=== PATIENT | male | born 1950 | race Caucasian/White ===

== ENCOUNTER 2018-01-01 20:19 | Emergency (ER) | payer MEDICARE, OTHER ==
[2018-01-01 20:33] VITALS: BP 136/76
--- NOTE | 2018-01-01 21:07 | ED Physician Documentation ---
General Adult - HISTORIAN Historian: patient - HPI Stated Complaint: Painful urinary retention Chief Complaint: General Adult Onset: hours Timing: still present Further Comments: yes (Pt is a 67 yo male with urinary retention. Pt is on several meds for BPH and is followed by a urologist. Pt had been managing to void, but today he has retention and can't void at all. Pt has been using sudafed for a recent cold and wonders if this contributed to his greater difficulty.) - ROS CONST: no problems EYES/ENT: none CVS/RESP: none GI/: other (difficulty voiding/retention) MS/SKIN/LYMPH: none - PAST HX Past History: other (HLD, difficulty voiding) Allergies/Adverse Reactions: Allergies Allergy/AdvReac Type Severity Reaction Status Date / Time Penicillins Allergy Verified 01/01/18 20:33 - SOCIAL HX Smoking History: non-smoker - FAMILY HX Family History: No - VITAL SIGNS Vital Signs: Vital Signs Temp Pulse Resp BP Pulse Ox 98.3 F 77 18 136/76 98 01/01/18 20:25 01/01/18 20:25 01/01/18 20:25 01/01/18 20:25 01/01/18 20:25 - REVIEWED ASSESSMENTS Nursing Assessment Reviewed: Yes Vitals Reviewed: Yes Progress - Progress Progress: in & out amador cath voided 800 cc U/a - neg pt will f/u with his urologist in am ED Results Lab/Radiology - Orders Orders: ED Orders Category Date Time Status Amador [Urinary catheterization] 1T Care 01/01/18 20:34 Active UA [URINALYSIS] Routine Lab 01/01/18 Ordered General Adult Physical Exam - PHYSICAL EXAM GENERAL APPEARANCE: mild distress EENT: pharynx normal NECK: normal inspection, supple RESPIRATORY: no resp distress, chest non-tender, breath sounds normal CVS: reg rate & rhythm, heart sounds normal ABDOMEN: soft, normal bowel sounds, tenderness (suprapubic) BACK: normal inspection, no CVA tenderness SKIN: warm/dry, normal color EXTREMITIES: non-tender, normal range of motion, no evidence of injury, no edema NEURO: oriented X3, motor nml, sensation nml Discharge Clincal Impression: Urinary retention Referrals: Obdulia De La Paz MD [Primary Care Provider] - Condition: Good Disposition: 01 HOME, SELF-CARE Decision to Admit: NO Decision Time: 21:07
[2018-01-02 07:01] LABS: APPEARANCE,URINE CLEAR (CLEAR); COLOR,URINE YELLOW (YELLOW); OCCULT BLOOD,URINE TRACE-INTACT (NEGATIVE); UROBILINOGEN URINE 0.2 Eu (0.2-1.0)
== END 2018-01-01 21:15 | disposition home or self-care (01) ==
LOC: ED 20:19
DX: R33.9 Retention of urine, unspecified (principal)
CPT/HCPCS: 51701; 81002; 99283

== ENCOUNTER 2018-01-02 01:54 | Emergency (ER) | payer MEDICARE, OTHER ==
[2018-01-02 02:48] VITALS: BP 138/80
--- NOTE | 2018-01-02 02:48 | ED Physician Documentation ---
General Adult - HISTORIAN Historian: patient - HPI Stated Complaint: urinary retention Chief Complaint: General Adult Onset: hours Timing: still present Severity: moderate Further Comments: yes (Pt is a 67 yo male with BPH on several BPH meds, who was here earlier this evening and had an in & out amador cath. Pt returned home and again became unable to void and became uncomfortable. Pt returns to ER with urniary retention.) - ROS CONST: no problems EYES/ENT: none CVS/RESP: none GI/: problems urinating (retention) MS/SKIN/LYMPH: none - PAST HX Past History: other (BPH, HLD) Allergies/Adverse Reactions: Allergies Allergy/AdvReac Type Severity Reaction Status Date / Time Penicillins Allergy Verified 01/02/18 02:48 - SOCIAL HX Smoking History: non-smoker - FAMILY HX Family History: No - VITAL SIGNS Vital Signs: Vital Signs Temp Pulse Resp BP Pulse Ox 136/76 01/01/18 20:25 - REVIEWED ASSESSMENTS Nursing Assessment Reviewed: Yes Vitals Reviewed: Yes Progress - Progress Progress: Amador cath placed, with leg bag. Pt will f/u with his urologist in am. Pt had neg u/a earlier this evening. ED Results Lab/Radiology - Orders Orders: ED Orders Category Date Time Status Amador [Urinary catheterization] 1T Care 01/02/18 02:35 Active General Adult Physical Exam - PHYSICAL EXAM GENERAL APPEARANCE: mild distress NECK: normal inspection, supple RESPIRATORY: no resp distress, chest non-tender, breath sounds normal CVS: reg rate & rhythm, heart sounds normal ABDOMEN: soft, no organomegaly, normal bowel sounds, other (suprapubic tenderness c/w urinary retention) BACK: normal inspection, no CVA tenderness SKIN: warm/dry, normal color EXTREMITIES: non-tender, normal range of motion, no evidence of injury NEURO: oriented X3, motor nml, sensation nml Discharge Clincal Impression: Urinary retention Referrals: Primary Doctor,No [Primary Care Provider] - Condition: Good Disposition: HOME, SELF-CARE Decision to Admit: NO Decision Time: 02:55
== END 2018-01-02 02:53 | disposition home or self-care (01) ==
LOC: ED 01:54
DX: R33.9 Retention of urine, unspecified (principal); N40.0 Benign prostatic hyperplasia without lower urinary tract symptoms; E78.5 Hyperlipidemia, unspecified
CPT/HCPCS: 51702; 99283

== ENCOUNTER 2018-01-03 09:59 | Outpatient (CLI) | payer MEDICARE, OTHER ==
[2018-01-02 02:48] VITALS: BP 138/80
[2018-01-03 10:18] LABS: EOSINOPHILS % 4.2 % (0.0-6.8); MEAN CORPUSCULAR HEMOGLOBIN 30.7 pg (28.0-34.0); MEAN CORPUSCULAR VOLUME 91.6 fl (80.0-100.0); MONOCYTES % 6.7 % (0.0-11.0); NEUTROPHILS # 4.7 # k/uL (1.4-7.7)
[2018-01-03 10:47] LABS: eGFR (African) > 60; eGFR (Non-African) > 60
== END 2018-01-03 10:00 ==
LOC: LAB 09:59
PROVIDERS: ATTEND Family Medicine
DX: R33.9 Retention of urine, unspecified (principal)
CPT/HCPCS: 36415; 80053; 85025; G0103; 84153

== ENCOUNTER 2018-04-25 07:10 | Emergency (ER) | payer MEDICARE, OTHER ==
--- NOTE | 2018-04-25 07:21 | ED Physician Documentation ---
Low Back Pain - HISTORIAN Historian: patient - HPI Stated Complaint: fall and low back pain Chief Complaint: Fall History: other (after fall ) Onset: days ago (5) Duration: continues in ED Recent Injury: Yes (He fell out of the truck on Saturday ) Context: fall Where: home Other Injuries: back Severity: moderate Quality: other (He said the low back pain (middle) is constant and gnawing pain and when he moves or laughs he has a sharp pain that "grabs" and this am "brought me to my knees" He has been taking ibuprofen /tylenol with mild relief. Denies any loss of bowel or bladder ) Associated Symptoms: denies: constipation, incontinence, nausea, vomiting, numbness Worsened By:: other (laughing ) Relieved By: remaining still - ROS CONST: no problems - PAST HX Past History: other (hyperlipidemia and BPH) Surgeries/Procedures: other Immunizations: UTD Allergies/Adverse Reactions: Allergies Allergy/AdvReac Type Severity Reaction Status Date / Time Penicillins Allergy Verified 04/25/18 07:28 - SOCIAL HX Smoking History: non-smoker Alcohol Use: none Drug Use: none - FAMILY HX Family History: none - VITAL SIGNS Vital Signs: Vital Signs Temp Pulse Resp BP Pulse Ox 98.0 F 66 18 116/80 98 04/25/18 07:21 04/25/18 07:21 04/25/18 07:21 04/25/18 07:21 04/25/18 07:21 - REVIEWED ASSESSMENTS Nursing Assessment Reviewed: Yes Vitals Reviewed: Yes Progress - Progress Progress: 0900: states pain is "slightly better" DG 0935: Discussed findings with pt and spouse and need for transfer ED Results Lab/Radiology - Orders Orders: ED Orders Category Date Time Status CT L-SPINE W/O CONTRAST Stat Exams 04/25/18 Ordered LUMBAR SPINE WITH OBLIQUES [L SPINE 4 VIEWS] [RAD] Stat Exams 04/25/18 Ordered Orphenadrine Citrate [Norflex] Med 04/25/18 07:46 Discontinued 60 mg IM NOW ONE methylPREDNISolone ACETATE [Depo-Medrol] Med 04/25/18 07:46 Discontinued 80 mg IM NOW ONE oxyCODONE HCL/ACETAMINOPHEN [Percocet 5-325 mg Tablet] Med 04/25/18 07:47 Discontinued 1 each PO NOW ONE Low Back Pain/Injury - Physical Exam General Appearance: alert, mild distress EENT: eye inspection normal Neck: non-tender, painless ROM Resp/CVS: chest non-tender, breath sounds nml, heart sounds nml, no resp. distress, lungs clear, reg. rate & rhythm Abdomen: non-tender Back: non-tender, other (with movement to right or left he states the "gripping pain" starts. He also states that the laughing does that same feeling ) Neuro/Psych: oriented x3, motor nml, sensation nml, reflexes nml, mood/affect nml Skin: warm/dry, normal color Extremities: non-tender, normal range of motion, no edema Discharge Clincal Impression: Burst fracture of lumbar vertebra Qualifiers: Encounter type: initial encounter Fracture type: closed Qualified Code(s): S32.001A - Stable burst fracture of unspecified lumbar vertebra, initial encounter for closed fracture Referrals: Obdulia De La Paz MD [Primary Care Provider] - 2 Days Comments: [id number] : [facility] accepting Dr Frank - pt will go via ambulance to the ER DG Condition: Stable Disposition: 02 XFER SHT-TRM HOSP Decision to Admit: NO Date of Decison to Admit: 04/25/18 Decision Time: 09:25
[2018-04-25] MEDS ORDERED: ORPHENADRINE CITRATE 60 MG/2ML IM ONE (07:46)
[2018-04-25] MEDS ORDERED: methylPREDNISolone ACETATE 80 MG/ML VIAL IM ONE (07:46)
[2018-04-25] MEDS ORDERED: oxyCODONE/ACETAMINOPHEN 5/325 TABLET PO ONE (07:47)
[2018-04-25] MEDS ORDERED: ONDANSETRON HCL/PF 4 MG/ 2ML VIAL IVP ONE (09:42)
[2018-04-25 09:50] VITALS: BP 143/71
--- NOTE | 2018-04-25 10:19 | Diagnostic Imaging Report ---
MICA HER [facility] [address] [facility] [address] [place], [place]. [address] Report Submission Date: April 25, 2018 7:56:48 AM CDT Patient Study Name: JOSE SANCHEZ Date: April 25, 2018 7:29:10 AM CDT Modality Type: DX Gender: M Description: SPINE : 50 Institution: [facility] Physician: MICA HER Examination: Plain film lumbar spine History: L-SPINE, LOW BACK PAIN SINCE SATURDAY AFTER A FALL ON TO BACK (Hx) Findings: 5 views of the lumbar spine demonstrates anterior compression of L1 and L2. Remaining vertebral bodies demonstrate normal height. Disc space narrowing L5/S1. Oblique views demonstrate facet degenerative changes. Minimal curvature to the right. Impression: Suspect acute L1 and L2 compression deformities given patient's history. Recommend obtaining CT and/or MRI to further evaluate. Electronically signed on April 25, 2018 7:56:48 AM CDT by: Marcelino TORRES
--- NOTE | 2018-04-25 10:20 | Diagnostic Imaging Report ---
MICA HER [facility] [id number] [facility] [address] [place], [place]. [address] Report Submission Date: April 25, 2018 9:13:58 AM CDT Patient Study Name: JOSE SANCHEZ Date: April 25, 2018 8:21:16 AM CDT Modality Type: CT\SR Gender: M Description: CT L-SPINE W/O CONTRAS : 50 Institution: [facility] Physician: MICA HER CT of the lumbar spine. Clinical history: CT L-SPINE, LOW BACK PAIN AFTER FALL ON TO BACK ON SATURDAY Technique: CT of the lumbar spine is performed in contiguous axial slices with sagittal and coronal reconstructions. Findings: There is an acute compression fracture involving the superior endplate of L1 with approximately 20% loss of the vertebral height. Posterior elements are intact and spinal canal is preserved. There is a burst fracture of L2 vertebral body with a 30 to 40% loss of vertebral height. There is retropulsion of the posterior superior aspect of the vertebral body into the canal by 3.5 mm. AP diameter canal measures 10 mm at this level. The posterior elements are intact. Vertebrae are otherwise anatomically aligned. Degenerative facet changes are seen at L3/L4 and L4/L5. Epidural fat is seen within the neural foramina at both levels. There is no disc herniation and no other evidence of stenosis. Vascular calcifications are incidentally noted.. Impression: 1. Burst fracture L2 with retropulsion posterior superior aspect of the vertebral body into the canal by 3.5 mm. 2. Compression fracture superior endplate L1. Electronically signed on April 25, 2018 9:13:58 AM CDT by: John TORRES
== END 2018-04-25 09:48 | disposition short-term general hospital (02) ==
LOC: ED 07:10
DX: S32.001A Stable burst fracture of unspecified lumbar vertebra, initial encounter for closed fracture (principal); W19.XXXA Unspecified fall, initial encounter; Y92.9 Unspecified place or not applicable; Y93.9 Activity, unspecified; Y99.9 Unspecified external cause status
CPT/HCPCS: 72110; 72131; A9270; J1040; J2360; J2405; 96372; 96374; 99285; S1016